=== PATIENT | female | born 1980 | race Caucasian/White ===

== ENCOUNTER → 2018-03-13 | Outpatient (CLI) | payer BC ==
[2018-03-13 12:51] LABS: Basophils % (A) 0 %; Eosinophils # (A) 0.1 k/uL (0-0.7); Eosinophils % (A) 1 %; HCT 39.3 % (34.0-46.0); HGB 13.1 gm/dL (11.4-16.0); Lymphocytes # (A) 1.9 k/uL (1.0-4.8); Lymphocytes % (A) 21 %; MCH 31.9 pg (25.0-35.0); MCHC 33.3 g/dL (31.0-37.0); MCV 95.9 fL (80.0-100.0); Mean Platelet Volume 7.2; Monocytes # (A) 0.4 k/uL (0-1.0); Monocytes % (A) 5 %; Neutrophils # (A) 6.5 k/uL (1.3-7.7); Neutrophils % (A) 72 %; Platelet Count 203 k/uL (150-450)
== END | disposition home or self-care (01) ==
LOC: LABPAT 11:37
PROVIDERS: ATTEND Obstetrics & Gynecology
DX: Z01.812 Encounter for preprocedural laboratory examination (principal); D06.9 Carcinoma in situ of cervix, unspecified
CPT/HCPCS: 36415; 85025

== ENCOUNTER 2018-03-18 07:03 | Day surgery (SDC) | payer BC ==
[2018-03-14 11:05] VITALS: BMI 36.1
[~2018-03-18 07:03] MED LIST: DEXAMETHASONE SOD PHOSPHATE 10 MG/ML 1 ML VIAL IV ONE; LACTATED RINGERS 1,000 ML IV SCH; LIDOCAINE 1% 20 ML VIAL (10MG/ML) FOR IV START INTRADERMA PRN; MIDAZOLAM 2 MG/2 ML VIAL IV PRN; ONDANSETRON 4 MG/2 ML VIAL IVP ONE; Pre Op ABX Message 1 EACH MISC MISCELLANE ONE; fentaNYL (PF) 50 MCG/ML 2 ML AMP IV PRN
[2018-03-18] MEDS ORDERED: SCOPOLAMINE 1.5MG/72HR PATCH TRANSDERM ONE (07:38)
[2018-03-18] MEDS ORDERED: SUCCINYLCHOLINE CHLORIDE 100 MG/5 ML SYR IV ONE (08:13)
[2018-03-18] MEDS ORDERED: LIDOCAINE 1% INJ 10MG/ML (20 ML MDV) ONE (08:13)
[2018-03-18] MEDS ORDERED: KETOROLAC 30 MG/ML 1 ML VIAL ONE (08:13)
[2018-03-18] MEDS ORDERED: PROPOFOL 10 MG/ML 20 ML VIAL IV ONE (08:13)
[2018-03-18] MEDS ORDERED: fentaNYL (PF) 50 MCG/ML 2 ML AMP ONE (08:13)
[2018-03-18] MEDS ORDERED: MIDAZOLAM 2 MG/2 ML VIAL ONE (08:13)
[2018-03-18] MEDS ORDERED: VASOPRESSIN 20 UNIT/ML 1 ML VIAL SQ ONE (08:31)
[2018-03-18] MEDS ORDERED: IODINE/POTASS IOD (LUGOLS) BTL TOPICAL ONE (08:32)
[2018-03-18] MEDS ORDERED: ACETIC ACID 15 DROPS/ML DROPS MISCELLANE ONE (08:33)
[2018-03-18] MEDS ORDERED: FERRIC SUBSULFATE (MONSELS) JAR TOPICAL ONE (08:34)
--- NOTE | 2018-03-18 08:54 | P.OP ---
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 Postoperative Diagnosis: Pathology pending Procedure(s) Performed: Cold knife conization of the cervix, ECC Anesthesia: GETA Surgeon: Brandi Mccullough Estimated Blood Loss (ml): 50 IV fluids (ml): 600 Urine output (ml): 200 Pathology: other (Cervical conization specimen and suture tied at 12:00, endocervical curettings) Disposition: PACU Description of Procedure: Patient is brought to the operating suite where a general anesthetic is administered. She's placed in the dorsal lithotomy position. The appropriate timeout is performed to assure proper patient and procedural identification. The cervix, vagina, perineum and lower abdominal areas are all prepped and draped in the usual sterile fashion. Urine hCG is negative. Weighted speculum was placed into the vagina. The cervix is injected circumferentially with a dilute Pitressin solution, 10 mL total used. Stay sutures are then placed on the cervix, using 0 Vicryl suture, from 2:00 to 4:00, tied and held with a hemostat, and then from 8:00 to 10:00, again tied securely and held with a hemostat. The previously biopsied areas are identified. A scalpel is used circumferentially to perform a wide deep cervical conization. The specimen is sutured tagged at 12:00 and sent to pathology. When this is completed, an endocervical curettage is performed to sample remaining tissue. Cauterization is used with a ball-tip to thoroughly cauterize the edges and the depth of the remaining cervical stump. Monsel solution is also applied for good hemostasis. Total estimated blood loss 500 mL's. All sponge needle and enhancement counts are correct at the end of the procedure. Patient is brought back to the recovery room in very good condition with stable vital signs including blood pressure 96/69, pulse 74, 98% O2 saturation. She is given Toradol prior to leaving the operative suite. She will follow-up with me in the office in 2 weeks.
[2018-03-18 09:08] VITALS: TEMP 96.8
[2018-03-18] MEDS ORDERED: ONDANSETRON 4 MG/2 ML VIAL IVP ONE (09:19)
[2018-03-18 09:21] VITALS: RESP 16
[2018-03-18] MEDS ORDERED: LACTATED RINGERS 1,000 ML IV ONE (09:31)
[2018-03-18 10:15] VITALS: BP 110/77; PULSE 77
== END 2018-03-18 10:31 | disposition home or self-care (01) ==
LOC: OR 07:03
PROVIDERS: ATTEND Obstetrics & Gynecology
DX: C53.0 Malignant neoplasm of endocervix (principal); F32.9 Major depressive disorder, single episode, unspecified; F41.9 Anxiety disorder, unspecified; E78.5 Hyperlipidemia, unspecified; E07.9 Disorder of thyroid, unspecified; G43.909 Migraine, unspecified, not intractable, without status migrainosus; Z79.899 Other long term (current) drug therapy; F90.9 Attention-deficit hyperactivity disorder, unspecified type; Z88.5 Allergy status to narcotic agent; Z88.8 Allergy status to other drugs, medicaments and biological substances
CPT/HCPCS: 81025; 88305; 88342; 88307; 57520; J2250; J1100; J2405; J2001; J3010; J1885; J0330; J2704

== ENCOUNTER → 2023-03-05 | Outpatient (CLI) | payer BC ==
--- NOTE | 2023-03-05 15:00 | US ---
EXAMINATION TYPE: US thyroid st tissue head/neck DATE OF EXAM: 03/05/2023 COMPARISON: 08/15/2015 CLINICAL INDICATION: Female, 42 years old with history of E04.1 NONTOXIC SINGLE THYROID NODULE; thyro id nodule GLAND SIZE: Right Lobe: 4.9 x .9 x 1.3 cm Overall Parenchyma: homogenous Left Lobe: 5.2 x 1.3 x 1.3 cm Overall Parenchyma: homogeneous Isthmus Thickness: .3 cm NODULES RIGHT: # of nodules measured on right: Subcentimeter nodule seen. LEFT: # of nodules measured on left: 0 ISTHMUS: # of nodules measured in the isthmus: 0 Bilateral neck scanned, no evidence of lymphadenopathy. IMPRESSION: Thyroid nodules which are below 1 cm in greatest dimension. No suspicious thyroid nodules.
--- NOTE | 2023-03-06 09:38 | MM ---
Reason for Exam: Screening (asymptomatic). Baseline mammogram. Patient History: Menarche at age 15. First Full-Term at age 29. Premenopausal. Maternal grandmother had ovarian cancer at or over age 50. Maternal grandmother had breast cancer under age 50. Last menstrual period: 02/24/2023 Risk Values: Daya 5 year model risk: 0.6%. NCI Lifetime model risk: 10.1%. Prior Study Comparison: Patient's first Mammogram. Tissue Density: There are scattered fibroglandular densities. Findings: Analyzed By CAD. There is no suspicious group of microcalcifications or new suspicious mass in either breast. Overall Assessment: Negative, BI-RAD 1 Management: Screening Mammogram of both breasts in 1 year. . Patient should continue monthly self-breast exams. A clinical breast exam by your physician is recommended on an annual basis. This exam should not preclude additional follow-up of suspicious palpable abnormalities. Note on Daya scores and lifetime risk: 1. A Daya score greater than 3% is considered moderate risk. If this is the case, consider specialist referral to assess eligibility for a risk reducing agent. 2. If overall lifetime risk for the development of breast cancer is 20% or higher, the patient may qualify for future screening with alternating mammogram and breast MRI. Electronically signed and approved by: Law Corrales M.D. Radiolog[facility]
== END | disposition home or self-care (01) ==
LOC: RADMAMWWP 13:39
PROVIDERS: ATTEND Family Medicine
DX: Z12.31 Encounter for screening mammogram for malignant neoplasm of breast (principal); E04.2 Nontoxic multinodular goiter; Z80.3 Family history of malignant neoplasm of breast
CPT/HCPCS: 76536; 77063; 77067